=== PATIENT | male | born 1960 | race Caucasian/White ===

== ENCOUNTER 2017-01-29 09:05 | Emergency (ER) | payer OTHER ==
--- NOTE | 2017-02-01 12:41 | ER ---
ADMIT: 01/29/2017 RM/LOC: ER [facility] MR#: [id number] [facility] [address] [place] [id number] JOSE GALVEZ [address] [place] [address] Emergency Room Report SEX: M AGE: 56 : 1960 DATE: 01/29/2017 ADDENDUM: A 56-year-old, white male, smoker, coming in with kind of nonspecific facial numbness, a little bit of weakness that comes and goes, it is gone now. Exam is negative. CT of the head is negative. Chest is negative. CBC, chemistry are negative along with his EKG. More of transient paresthesia. He is a smoker, advised to quit smoking, and he does need to follow up with his doctor within or about a week. CONDITION ON DISCHARGE: Good. Jarrett Morris MD/ betzaida JOB #: [id number] CC: Jarrett Morris MD, Attending Physician Sammi Hatfield MD, Family Physician
== END 2017-01-29 10:35 | disposition home or self-care (01) ==
LOC: ER 09:05
DX: R20.9 Unspecified disturbances of skin sensation (principal); F17.200 Nicotine dependence, unspecified, uncomplicated; Z90.49 Acquired absence of other specified parts of digestive tract

== ENCOUNTER 2017-05-01 07:06 | Emergency (ER) | payer OTHER ==
--- NOTE | 2017-05-02 09:15 | ER ---
ADMIT: 05/01/2017 RM/LOC: ER [facility] MR#: [id number] [address] [id number] [address] [place] [address] Emergency Room Report SEX: M AGE: 56 : 1960 DATE: 05/01/2017 ADDENDUM: A 56-year-old, white male, coming in with not feeling well, nonspecific symptoms. He was here in January and had been worked up. At that time, he had a little left arm numbness, but really nothing showed on CT. His symptoms actually were fairly minimal at that time. Today, again, nonspecific complaints that he has, just I do not feel quite right. However, his daughter, who I talked to on the phone, said that he had a headache last night, kind of all of a sudden, and then just did not feel right and she got him and talked to him of coming in today. 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 However, he does not qualify as a lytic patient because he is way out of the window. I did speak with the daughter. Daughter wants him in [facility] since we have no Neurologic Service here. Family is agreeing with those wishes. CONDITION ON DISCHARGE: Serious, but stable. Jarrett Morris MD/ adolphl JOB #: [id number] CC: Jarrett Morris MD, Attending Physician Sammi Hatfield MD, Family Physician
== END 2017-05-01 11:49 | disposition short-term general hospital (02) ==
LOC: ER 07:06
DX: I63.50 Cerebral infarction due to unspecified occlusion or stenosis of unspecified cerebral artery (principal); F17.210 Nicotine dependence, cigarettes, uncomplicated; Z90.49 Acquired absence of other specified parts of digestive tract